=== PATIENT | male | born 1975 | race Caucasian/White ===

== ENCOUNTER 2017-02-04 12:12 | Emergency (ER) | payer SELFPAY ==
[2017-02-04] MEDS ORDERED: SUCRALFATE SUSP 1 GM/10 ML UDCUP PO ONE (12:37)
[2017-02-04] MEDS ORDERED: PANTOPRAZOLE SODIUM 40 MG VIAL IV ONE (12:37)
--- NOTE | 2017-02-04 12:39 | ER Document Report ---
ED GI Bleed / Rectal Pain - General Mode of Arrival: Medic Information source: Patient - HPI Patient complains to provider of: Dark/tarry stools, Vomiting blood. No: Bright red bld from rect. Onset: Yesterday Timing/Duration: Sudden Quality of pain: No pain Pain Level: Denies Emesis description: Bright red blood Dark Stools: Black Use of: ASA Associated symptoms: None. denies: Back pain, Chest pain, Fainting/dizzy/ lightheade, Other Exacerbated by: Denies Relieved by: Denies Similar symptoms previously: No Recently seen / treated by doctor: No <YANET RAYMOND - Last Filed: 02/04/17 19:49> <CHIN CASH - Last Filed: 02/05/17 02:38> - General Stated Complaint: POSSIBLE BLOOD IN VOMIT Notes: Patient states that he had dark colored stools 1 yesterday and 2 episodes today. Patient reports around 9:00 this morning vomiting about 200 mL's of bloody emesis. Patient denies any abdominal tenderness. Patient does report epigastric pain off and on over the past year but none at this time. Patient denies any chest pain, lightheadedness, diaphoresis or any other symptoms. Patient does report taking Goody powders about 4 times a week to treat headache pain. (YANET RAYMOND) - Related Data Allergies/Adverse Reactions: No Known Allergies Allergy (Unverified 02/04/17 15:29) Past Medical History - General Information source: Patient - Social History Smoking Status: Current Every Day Smoker Frequency of alcohol use: None Drug Abuse: None Occupation: electrician refinery Family History: Other - Father with a history of ulcers - Medical History Medical History: Negative Past Surgical History: Reports: Other - Eye surgery - Immunizations Hx Diphtheria, Pertussis, Tetanus Vaccination: Yes <YANET RAYMOND - Last Filed: 02/04/17 19:49> Review of Systems - Review of Systems Constitutional: No symptoms reported. denies: Fever, Recent illness EENT: No symptoms reported Cardiovascular: No symptoms reported. denies: Chest pain, Palpitations, Syncope , Dizziness Respiratory: No symptoms reported. denies: Cough, Short of breath Gastrointestinal: Abdominal pain - Off and on for the past year, none today, Vomiting, Blood in vomit, Black stools. denies: Nausea, Blood streaked bowels Genitourinary: No symptoms reported Male Genitourinary: No symptoms reported Musculoskeletal: No symptoms reported. denies: Back pain Skin: No symptoms reported Hematologic/Lymphatic: No symptoms reported Neurological/Psychological: No symptoms reported <YANET RAYMOND - Last Filed: 02/04/17 19:49> Physical Exam - General General appearance: Appears well, Alert <MANDIYANET - Last Filed: 02/04/17 19:49> <CHIN CASH - Last Filed: 02/05/17 02:38> - Vital signs Vitals: Temp Pulse Resp BP Pulse Ox 97.9 F 81 16 137/79 H 98 02/04/17 12:39 02/04/17 12:39 02/04/17 12:39 02/04/17 12:39 02/04/17 12:39 - General Notes: PHYSICAL EXAMINATION: GENERAL: Well-appearing and in no acute distress. HEAD: Atraumatic, normocephalic. EYES: sclera anicteric, conjunctiva are normal. ENT: nares patent. Moist mucous membranes. NECK: Normal range of motion, supple without lymphadenopathy LUNGS: CTAB and equal. No wheezes rales or rhonchi. HEART: Regular rate and rhythm without murmurs ABDOMEN: Soft, nontender, normal bowel sounds, no guarding. EXTREMITIES: Normal range of motion, no pitting edema. No cyanosis. BACK: No CVA tenderness NEUROLOGICAL: Cranial nerves grossly intact. Normal speech. Normal gait. PSYCH: Normal mood, normal affect. SKIN: Warm, Dry, normal turgor, no rashes or lesions noted (YANET RAYMOND) Course - Laboratory Result Diagrams: 02/04/17 17:27 02/04/17 12:32 <MANDISAMLULU - Last Filed: 02/04/17 19:49> - Laboratory Result Diagrams: 02/04/17 17:27 02/04/17 12:32 <CHIN CASH - Last Filed: 02/05/17 02:38> - Re-evaluation Re-evalutation: 02/04/17 12:[address] Noriega regarding patient presentation. Advises giving patient his Carafate as well as Protonix. 02/04/17 15:10 Reviewed patient's repeat CBC with Dr. Noriega, recommends repeating test in 2 hours and not giving any additional IV fluids at this time. Patient continues with stable vital signs without tachycardia. 02/04/17 17:47 Patient without any additional hematemesis during ER stay. Patient denies any abdominal pain complaints. Patient orthostatic. Patient when resting heart rate is in the 80s, sitting heart rate goes into the 120s and standing, heart rate increases to 150. 02/04/17 18:03 Call placed to transfer center at [facility] 02/04/17 18:11 Placed call to transfer center at [facility] 02/04/17 18:[address] gutierrez at [facility] who agrees to accept patient to Dr. Emmanuel services. Patient aware of plan and agrees with plan. Awaiting for available bed. 02/04/17 19:49 Bedside report and handoff given to Evan Hernandez [employer]. Patient resting comfortably heart rate in the 80s. Patient denies complaints at this time. ( YANET RAYMOND) 02/05/17 02:38 Blood pressure stable in patient without complaint at time of transfer to [facility]. Patient sent for gastrointestinal services not available at the current time at this facility. (CHIN CASH) - Vital Signs Vital signs: Temp Pulse Resp BP Pulse Ox 98.2 F 150 H 18 112/77 97 02/05/17 01:24 02/04/17 18:13 02/05/17 02:32 02/05/17 02:32 02/05/17 02:32 - Laboratory Laboratory results interpreted by al: 02/04/17 02/04/17 02/04/17 12:32 12:32 13:51 WBC 13.8 H RBC Hgb Hct RDW 14.2 H Absolute Neutrophils 10.4 H Chloride 109 H BUN 39 H AST 15 L Total Protein 6.2 L Urine Glucose (UA) >=500 H Urine Ketones 20 H 02/04/17 02/04/17 14:44 17:27 WBC 13.8 H 12.6 H RBC 4.00 L 3.96 L Hgb 12.4 L 12.4 L Hct 36.2 L 35.7 L RDW Absolute Neutrophils Chloride BUN AST Total Protein Urine Glucose (UA) Urine Ketones Labs- Entire Visit 02/04/17 02/04/17 02/04/17 12:32 12:32 12:32 WBC 13.8 H RBC 4.35 Hgb 13.5 Hct 39.8 MCV 91 MCH 31.0 MCHC 34.0 RDW 14.2 H Plt Count 236 Seg Neutrophils % 75.2 Lymphocytes % 15.2 Monocytes % 7.2 Eosinophils % 2.0 Basophils % 0.4 Absolute Neutrophils 10.4 H Absolute Lymphocytes 2.1 Absolute Monocytes 1.0 Absolute Eosinophils 0.3 Absolute Basophils 0.1 PT 13.1 INR 0.96 APTT 28.9 Sodium 143.7 Potassium 5.0 Chloride 109 H Carbon Dioxide 23 Anion Gap 12 BUN 39 H Creatinine 0.97 Est GFR ( Amer) > 60 Est GFR (Non-Af Amer) > 60 Glucose 89 Calcium 9.0 Total Bilirubin 0.6 Direct Bilirubin 0.1 Indirect Bilirubin Not Reportable Neonat Total Bilirubin Not Reportable AST 15 L ALT 28 Alkaline Phosphatase 44 Total Protein 6.2 L Albumin 4.0 Lipase 54.3 Urine Color Urine Appearance Urine pH Ur Specific [place] Urine Protein Urine Glucose (UA) Urine Ketones Urine Blood Urine Nitrite Urine Bilirubin Urine Urobilinogen Ur Leukocyte Esterase Urine WBC (Auto) Urine RBC (Auto) Squamous Epi Cells Auto Urine Ascorbic Acid Stool Occult Blood Blood Type Antibody Screen 02/04/17 02/04/17 02/04/17 12:50 12:50 13:51 WBC RBC Hgb Hct MCV MCH MCHC RDW Plt Count Seg Neutrophils % Lymphocytes % Monocytes % Eosinophils % Basophils % Absolute Neutrophils Absolute Lymphocytes Absolute Monocytes Absolute Eosinophils Absolute Basophils PT INR APTT Sodium Potassium Chloride Carbon Dioxide Anion Gap BUN Creatinine Est GFR ( Amer) Est GFR (Non-Af Amer) Glucose Calcium Total Bilirubin Direct Bilirubin Indirect Bilirubin Neonat Total Bilirubin AST ALT Alkaline Phosphatase Total Protein Albumin Lipase Urine Color YELLOW Urine Appearance CLEAR Urine pH 7.0 Ur Specific [place] 1.020 Urine Protein NEGATIVE Urine Glucose (UA) >=500 H Urine Ketones 20 H Urine Blood NEGATIVE Urine Nitrite NEGATIVE Urine Bilirubin NEGATIVE Urine Urobilinogen NEGATIVE Ur Leukocyte Esterase NEGATIVE Urine WBC (Auto) 1 Urine RBC (Auto) 0 Squamous Epi Cells Auto <1 Urine Ascorbic Acid NEGATIVE Stool Occult Blood POSITIVE Blood Type Cancelled Antibody Screen Cancelled 02/04/17 02/04/17 02/04/17 14:44 14:44 17:27 WBC 13.8 H 12.6 H RBC 4.00 L 3.96 L Hgb 12.4 L 12.4 L Hct 36.2 L 35.7 L MCV 91 90 MCH 31.1 31.2 MCHC 34.3 34.6 RDW 14.0 13.7 Plt Count 213 220 Seg Neutrophils % Lymphocytes % Monocytes % Eosinophils % Basophils % Absolute Neutrophils Absolute Lymphocytes Absolute Monocytes Absolute Eosinophils Absolute Basophils PT INR APTT Sodium Potassium Chloride Carbon Dioxide Anion Gap BUN Creatinine Est GFR ( Amer) Est GFR (Non-Af Amer) Glucose Calcium Total Bilirubin Direct Bilirubin Indirect Bilirubin Neonat Total Bilirubin AST ALT Alkaline Phosphatase Total Protein Albumin Lipase Urine Color Urine Appearance Urine pH Ur Specific [place] Urine Protein Urine Glucose (UA) Urine Ketones Urine Blood Urine Nitrite Urine Bilirubin Urine Urobilinogen Ur Leukocyte Esterase Urine WBC (Auto) Urine RBC (Auto) Squamous Epi Cells Auto Urine Ascorbic Acid Stool Occult Blood Blood Type AB NEGATIVE Antibody Screen NEGATIVE 02/04/17 17:48 02/04/17 19:49 (YANET RAYMOND) Discharge <YANET RAYMOND - Last Filed: 02/04/17 19:49> <CHIN CASH - Last Filed: 02/05/17 02:38> - Discharge Clinical Impression: GI bleed Qualifiers: GI bleed type/associated pathology: unspecified gastrointestinal hemorrhage type Qualified Code(s): K92.2 - Gastrointestinal hemorrhage, unspecified Condition: Fair Disposition: [facility] / [facility]
[2017-02-04 12:49] LABS: ABSOLUTE BASOPHILS # (AUTO) 0.1 10^3/uL (0.0-0.2); ABSOLUTE EOSINOPHILS # (AUTO) 0.3 10^3/uL (0.0-0.6); ABSOLUTE LYMPHOCYTES (AUTO) 2.1 10^3/uL (0.5-4.7); ABSOLUTE NEUT (AUTO) 10.4 10^3/uL (1.7-8.2); BASOPHILS % (AUTO) 0.4 % (0-2); HEMATOCRIT 39.8 % (37.9-51.0); HEMOGLOBIN 13.5 g/dL (13.5-17.0); HGB HCT DIFFERENCE 0.7; LYMPHOCYTES % (AUTO) 15.2 % (13-45); MEAN CORPUSCULAR VOLUME 91 fl (80-97); MONOCYTES % (AUTO) 7.2 % (3-13); RED BLOOD COUNT 4.35 10^6/uL (4.35-5.55); RED CELL DISTRIBUTION WIDTH 14.2 % (11.5-14.0); SEGMENTED NEUTROPHILS % (AUTO) 75.2 % (42-78); WHITE BLOOD COUNT 13.8 10^3/uL (4.0-10.5)
[2017-02-04 12:56] LABS: PROTHROMBIN TIME 13.1 SEC (11.4-15.4)
[2017-02-04 12:57] LABS: PARTIAL THROMBOPLASTIN TIME 28.9 SEC (23.5-35.8)
[2017-02-04 13:09] LABS: ALANINE AMINOTRANSFERASE 28 U/L (21-72); ALKALINE PHOSPHATASE 44 U/L (38-126); ANION GAP 12 (5-19); ASPARTATE AMINO TRANSFERASE 15 U/L (17-59); BILIRUBIN,DIRECT 0.1 mg/dL (0.0-0.4); BILIRUBIN,TOTAL 0.6 mg/dL (0.2-1.3); BLOOD UREA NITROGEN 39 mg/dL (7-20); CARBON DIOXIDE 23 mmol/L (22-30); CHLORIDE 109 mmol/L (98-107); CREATININE RESULT 0.97 mg/dL (0.52-1.25); GLUCOSE 89 mg/dL (75-110); LIPASE 54.3 U/L (23-300); SODIUM 143.7 mmol/L (137-145); TOTAL PROTEIN 6.2 g/dL (6.3-8.2)
[2017-02-04 14:00] LABS: APPEARANCE,URINE CLEAR; BILIRUBIN,URINE NEGATIVE (NEGATIVE); GLUCOSE, URINE >=500 mg/dL (NEGATIVE); KETONES,URINE 20 mg/dL (NEGATIVE); LEUKOCYTE ESTERASE,URINE NEGATIVE (NEGATIVE); NITRITE,URINE NEGATIVE (NEGATIVE); PROTEIN,URINE NEGATIVE (NEGATIVE); UROBILINOGEN,URINE NEGATIVE mg/dL (<2.0)
[2017-02-04 15:03] LABS: HEMATOCRIT 36.2 % (37.9-51.0); HEMOGLOBIN 12.4 g/dL (13.5-17.0); MEAN CORPUSCULAR HEMOGLOBIN 31.1 pg (27.0-33.4); MEAN CORPUSCULAR HGB CONC 34.3 g/dL (32.0-36.0); MEAN CORPUSCULAR VOLUME 91 fl (80-97); WHITE BLOOD COUNT 13.8 10^3/uL (4.0-10.5)
[2017-02-04 17:36] LABS: HEMATOCRIT 35.7 % (37.9-51.0); HEMOGLOBIN 12.4 g/dL (13.5-17.0); HGB HCT DIFFERENCE 1.5; MEAN CORPUSCULAR HEMOGLOBIN 31.2 pg (27.0-33.4); MEAN CORPUSCULAR HGB CONC 34.6 g/dL (32.0-36.0); MEAN CORPUSCULAR VOLUME 90 fl (80-97); RED BLOOD COUNT 3.96 10^6/uL (4.35-5.55); RED CELL DISTRIBUTION WIDTH 13.7 % (11.5-14.0); WHITE BLOOD COUNT 12.6 10^3/uL (4.0-10.5)
[2017-02-04] MEDS ORDERED: NORMAL SALINE 1000 ML 1,000 ML IV ONE (18:03)
[2017-02-04] MEDS ORDERED: ACETAMINOPHEN 325 MG TABLET PO ONE (19:10)
[2017-02-04] MEDS ORDERED: PANTOPRAZOLE SODIUM 40 MG VIAL IV PRN (19:11)
[2017-02-04] MEDS ORDERED: RINGERS SOLUTION,LACTATED 1,000 ML IV ONE (22:15)
[2017-02-05] MEDS ORDERED: ONDANSETRON HCL INJ/PF 4 MG/2 ML SDV IV ONE (01:24)
[2017-02-05 02:33] VITALS: BP 112/77
== END 2017-02-05 02:47 | disposition short-term general hospital (02) ==
LOC: ER 12:12
DX: K92.2 Gastrointestinal hemorrhage, unspecified (principal); K62.89 Other specified diseases of anus and rectum; F17.200 Nicotine dependence, unspecified, uncomplicated
CPT/HCPCS: 96376; 99285; 96375; 96365; 96366; 86900; 86901; 36415; 86850; 83690; 85025; 85027; 85610; 85730; 82272; 80053; 81001; S0164; J2405; J7030; J7120